=== PATIENT | female | born 1995 | race Native Hawaiian/Other Pacific Islander ===

== ENCOUNTER 2021-08-25 09:50 | Emergency (ER) | payer OTHER ==
[~2021-08-25] VITALS: Ht 180.3 cm; Wt 129.3 kg
[2021-08-25 11:16] LABS: PLATELET COUNT 387 K/uL (152-353)
[2021-08-25 11:27] LABS: POTASSIUM 3.9 mmol/L (3.6-5.2)
[2021-08-25 13:04] VITALS: BP 141/86; TEMP 98.2
== END 2021-08-25 13:04 | disposition home or self-care (01) ==
LOC: ED 09:50
PROVIDERS: Emergency Medicine
DX: U07.1 COVID-19 (principal); J06.9 Acute upper respiratory infection, unspecified; F17.210 Nicotine dependence, cigarettes, uncomplicated
CPT/HCPCS: 80053; 81025; 85027; 87502; 94664; 96372; 99283; J1100; J1885

== ENCOUNTER 2021-09-03 09:44 | Emergency (ER) | payer OTHER ==
[~2021-09-03] VITALS: Ht 180.3 cm; Wt 129.3 kg
[2021-09-03 09:54] VITALS: TEMP 97.7
[2021-09-03 10:26] LABS: PLATELET COUNT 343 K/uL (152-353)
[2021-09-03 10:34] LABS: POTASSIUM 3.5 mmol/L (3.6-5.2)
[2021-09-03 12:44] VITALS: BP 141/87
== END 2021-09-03 13:15 | disposition home or self-care (01) ==
LOC: ED 09:44
PROVIDERS: Emergency Medicine
DX: R51.9 Headache, unspecified (principal); R53.81 Other malaise; Z86.16 Personal history of COVID-19
CPT/HCPCS: 80048; 85027; 99283